=== PATIENT | female | born 1945 | race Caucasian/White ===

== ENCOUNTER 2017-11-03 15:28 | Emergency (ER) | payer MEDICARE, OTHER ==
[~2017-11-03 15:28] MED LIST: AMLO-96 PO; ASP325 PO; ATOR40TA24 PO; AZIT-18 PO; D ME PO; DEXL60CA6 PO; DIA5 PO; ESCI20TA38 PO; ESOM20CA31 PO; ESOM40CA42 PO; FES4PT PO; FLUR INH; FLUT16SP20 NS; HYDR1TAB PO; K-DUR; KET10 PO; LISI-346 PO; PER PO; PHEN-460 PO; PRED20TA6 PO; PROM-110 PO; SPIR25TA78 PO; TIZA4CAP3 PO; VALS1TAB61 PO; VALS320T12 PO
--- NOTE | 2017-11-03 15:31 | ER Report ---
History and Physical Time Seen By MD: 15:30 HPI/ROS This is a very pleasant 71-year-old female with a history of chronic back pain. She is visiting [place] from [place]. She is at her sister's house and states that yesterday she did not realize there was a step and when she stepped down a small step she jolted her back. She did not fall. However since the small jolt from her foot hitting the ground relatively hard and twisting somewhat, she has had an exacerbation of her chronic back pain. He describes the pain as lumbar. It is both midline as well as paraspinal. It does radiate down her right leg which she describes as similar to sciatica she has had previously. She has no neurologic changes and no changes in bowel or bladder. No fever chills, no recent her seizures on her back. No abdominal pain or urinary symptoms. Remainder of the 14 system rev: Yes Allergies: Coded Allergies: Sulfa (Sulfonamide Antibiotics) (Verified Allergy, Severe, HIVES, 11/03/17) Home Meds Active Scripts Promethazine Hcl (PROMETHAZINE HCL) 25 Mg Tablet, 25 MG PO Q8H Y for NAUSEA/ VOMITING, #12 TAB Prov:FORTINO VALDERRAMA [facility] 05/16/17 Ketorolac Tromethamine (KETOROLAC TROMETHAMINE) 10 Mg Tab, 10 MG PO Q6H, #20 TAB Prov:FORTINO VALDERRAMA [facility] 05/16/17 Prednisone (PREDNISONE) 20 Mg Tablet, 20 MG PO BID, #9 TAB Prov:FORTINO VALDERRAMA [facility] 05/16/17 Azithromycin 250 Mg Tab (AZITHROMYCIN 250 MG TAB) 250 Mg Tablet, 1 TAB PO QDAY, #4 TAB Prov:FORTINO VALDERRAMA [facility] 05/16/17 Reported Medications D-Methorphan Hb/Prometh Hcl (PROMETHAZINE-DM SYRUP) 118 Ml Syrup, 5 ML PO Q6H, ML 05/16/17 Valsartan (DIOVAN) 320 Mg Tablet, 320 MG PO QDAY 05/16/17 Dexlansoprazole (DEXILANT) 60 Mg Noel., 60 MG PO QDAY 05/16/17 Fesoterodine Fumarate (TOVIAZ) 4 Mg Tabsr, 4 MG PO DAILY 12/31/14 Fluticasone Propionate (Flonase) 16 Gm [place], 2 [place] NS DAILY, 0 Refills 03/27/09 Flunisolide (Aerobid Inhaler) 7 Gm Inh, 0 INH BID Y, 0 Refills 2 PUFFS 03/27/09 Atorvastatin Calcium (Lipitor) 40 Mg Tablet, 40 MG PO QHS, 0 Refills 03/27/09 Reviewed Nurses Notes: Yes Old Medical Records Reviewed: Yes Hx Smoking: No Smoking Status: Never Smoker Hx Substance Use Disorder: No Hx Alcohol Use: No Constitutional Vital Sign - Last 24 Hours 11/03/17 15:34 Temp 98.2 Pulse 102 Resp 20 B/P (MAP) 160/88 Pulse Ox 93 O2 Delivery Room Air Physical Exam General Appearance: The patient is alert, has no immediate need for airway protection and no current signs of toxicity. Eyes: PEERL Respiratory: Chest is non tender, lungs are clear to auscultation. Cardiac: regular rate and rhythm Gastrointestinal: Abdomen is soft and non tender, no masses, bowel sounds normal. Musculoskeletal: Very mild Tenderness to palpation of the mid L-spine. No step offs. Tenderness to palpation of the right paralumbar spinal region with tenderness to palpation of the right buttocks which reproduces pain is similar to sciatica Neck: Neck is supple and non tender. Extremities have full range of motion and are non tender. Skin: No rashes or lesions. [ ] DIFFERENTIAL DIAGNOSIS: After history and physical exam differential diagnosis was considered for back pain including but not limited to muscular pain, herniated disc, spine fracture, intra-abdominal causes and urinary tract infection. Medical Decision Making ED Course/Re-evaluation ED Course This is a very pleasant 71-year-old female who presents to the emergency department with acute on chronic back pain after missing a step yesterday and landing on her foot hard and twisting. She did not fall. She has no neurologic deficits weakness or paresthesias. She is no bowel or bladder changes. Her physical exam is not concerning for need for imaging. Her physical exam is more consistent with muscle strain and exacerbation of her chronic sciatica. She was given Decadron, Toradol and Valium which completely relieved her symptoms. She is able to ambulate without pain. I will give her a very short course of Valium for the next 2 days and encouraged her to take Tylenol and ibuprofen as well Decision to Disposition Date: Nov 03, 2017 Decision to Disposition Time: 18:01 Depart Departure Latest Vital Signs Vital Signs Date Time Temp Pulse Resp B/P (MAP) Pulse Ox O2 Delivery O2 Flow Rate FiO2 11/03/17 15:34 98.2 102 20 160/88 93 Room Air Impression: Primary Impression: Low back strain Condition: Improved Disposition: HOME OR SELF-CARE New Scripts Diazepam (VALIUM) 5 Mg Tablet 5 MG PO 2-3XD Y for PAIN, #10 TAB Prov: SALLY ESPOSITO MD 11/03/17 Patient Instructions: Low Back Strain (ED) Problem Qualifiers Primary Impression: Low back strain Encounter type: initial encounter Qualified Codes: S39.012A - Strain of muscle, fascia and tendon of lower back, initial encounter SALLY ESPOSITO MD Nov 03, 2017 15:31
[2017-11-03 15:34] VITALS: BP 160/88
[2017-11-03] MEDS ORDERED: DIAZEPAM 5 MG TAB PO ONE (16:35)
[2017-11-03] MEDS ORDERED: DEXAMETHASONE 4 MG TAB PO ONE (16:35)
[2017-11-03] MEDS ORDERED: KETOROLAC 60 MG/2 ML VIAL IM ONE (16:35)
[2017-11-03] MEDS ORDERED: DIA5 PO (18:04)
== END 2017-11-03 18:13 | disposition home or self-care (01) ==
LOC: ER 15:48
DX: S39.012A Strain of muscle, fascia and tendon of lower back, initial encounter (principal)
CPT/HCPCS: 96372; 99283; A9270; J1885; J8540

== ENCOUNTER 2017-12-08 19:54 | Emergency (ER) | payer MEDICARE, OTHER ==
[2017-12-08 19:57] VITALS: BP 174/99
[2017-12-08] MEDS ORDERED: BACITRACIN OINT 0.9 GM PKT TP ONE (20:10)
[2017-12-08] MEDS ORDERED: DIPHTH/TETANUS/ACEL. PERTUSSIS IM ONLY ONE (20:10)
[2017-12-08] MEDS ORDERED: AMOX-559 PO (20:21)
--- NOTE | 2017-12-08 20:22 | ER Report ---
History and Physical Time Seen By : 20:11 Hx. of Stated Complaint: PUPPY BITE TO LEFT ELBOW. CONCERENED ABOUT INFECTION HPI/ROS CHIEF COMPLAINT: Dog bite HISTORY OF PRESENT ILLNESS: Pt is a 72-year-old female who presents to ED with complaint of a dog bite to her left elbow area that occurred about an hour ago. She states that she was bitten by her nieces puppy to 3 months old. She is uncertain of the vaccination status of the dog but can find this out. 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 She is uncertain of her last tetanus vaccination. REVIEW OF SYSTEMS: Constitutional: No fever, no chills. Cardiovascular: No chest pain, no palpitations. Respiratory: No cough, no shortness of breath. Musculoskeletal: No back pain. Skin: See history of present illness. Neurological: No headache. Allergies: Coded Allergies: Sulfa (Sulfonamide Antibiotics) (Verified Allergy, Severe, HIVES, 12/08/17) Home Meds Active Scripts Diazepam (VALIUM) 5 Mg Tablet, 5 MG PO 2-3XD Y for PAIN, #10 TAB Prov:SALLY ESPOSITO MD 11/03/17 Promethazine Hcl (PROMETHAZINE HCL) 25 Mg Tablet, 25 MG PO Q8H Y for NAUSEA/ VOMITING, #12 TAB Prov:FORTINO VALDERRAMA [facility] 05/16/17 Ketorolac Tromethamine (KETOROLAC TROMETHAMINE) 10 Mg Tab, 10 MG PO Q6H, #20 TAB Prov:FORTINO VALDERRAMA [facility] 05/16/17 Prednisone (PREDNISONE) 20 Mg Tablet, 20 MG PO BID, #9 TAB Prov:FORTINO VALDERRAMA [employer] 05/16/17 Azithromycin 250 Mg Tab (AZITHROMYCIN 250 MG TAB) 250 Mg Tablet, 1 TAB PO QDAY, #4 TAB Prov:FORTINO VALDERRAMA [employer] 05/16/17 Reported Medications D-Methorphan Hb/Prometh Hcl (PROMETHAZINE-DM SYRUP) 118 Ml Syrup, 5 ML PO Q6H, ML 05/16/17 Valsartan (DIOVAN) 320 Mg Tablet, 320 MG PO QDAY 05/16/17 Dexlansoprazole (DEXILANT) 60 Mg , 60 MG PO QDAY 05/16/17 Fesoterodine Fumarate (TOVIAZ) 4 Mg Tabsr, 4 MG PO DAILY 12/31/14 Fluticasone Propionate (Flonase) 16 Gm [place], 2 [place] NS DAILY, 0 Refills 03/27/09 Flunisolide (Aerobid Inhaler) 7 Gm Inh, 0 INH BID Y, 0 Refills 2 PUFFS 03/27/09 Atorvastatin Calcium (Lipitor) 40 Mg Tablet, 40 MG PO QHS, 0 Refills 03/27/09 Reviewed Nurses Notes: Yes Old Medical Records Reviewed: Yes Hx Smoking: No Smoking Status: Never Smoker Hx Substance Use Disorder: No Hx Alcohol Use: No Constitutional Vital Sign - Last 24 Hours 12/08/17 19:57 Temp 98.3 Pulse 83 Resp 14 B/P (MAP) 174/99 Pulse Ox 92 O2 Delivery Room Air Physical Exam General Appearance: The patient is alert, has no immediate need for airway protection and no current signs of toxicity. Patient appears to be no acute distress. Eyes: Pupils equal and round no injection. Respiratory: Chest is non tender, lungs are clear to auscultation. Cardiac: regular rate and rhythm Musculoskeletal: Neck: Neck is supple and non tender. Extremities have full range of motion and are non tender. Skin: There are 3 small superficial 4 mm linear lacerations noted of the left elbow area. No surrounding erythema. No surrounding swelling. Medical Decision Making ED Course/Re-evaluation ED Course Discussed the patient and will prescribe prophylactic Augmentin. Patient will receive T dap and apply bacitracin to the wound. Decision to Disposition Date: December 08, 2017 Decision to Disposition Time: 20:17 Depart Departure Latest Vital Signs Vital Signs Date Time Temp Pulse Resp B/P (MAP) Pulse Ox O2 Delivery O2 Flow Rate FiO2 12/08/17 19:57 98.3 83 14 174/99 92 Room Air Impression: Primary Impression: Dog bite of left elbow Condition: Improved Disposition: HOME OR SELF-CARE New Scripts Amoxicillin/Pot Clav 875-125 Mg Tab (AUGMENTIN 875-125 TABLET) 1 Each Tablet 1 TAB PO Q12H, #20 TAB Prov: CARMITA SMITH PA-C 12/08/17 Patient Instructions: Animal Bite (ED) Additional Instructions: Monitor for signs and symptoms of infection including redness, swelling, discharge, fever. Follow-up with primary care provider in 2-3 days. If having worsening or concerning symptoms return to the emergency department. Problem Qualifiers Primary Impression: Dog bite of left elbow Encounter type: initial encounter Qualified Codes: S51.052A - Open bite, left elbow, initial encounter; W54.0XXA - Bitten by dog, initial encounter CARMITA SMITH PA-C December 08, 2017 20:22
== END 2017-12-08 20:45 | disposition home or self-care (01) ==
LOC: ER 20:31
DX: S51.052A Open bite, left elbow, initial encounter (principal); W54.0XXA Bitten by dog, initial encounter
CPT/HCPCS: 90471; 90715; 99282; A9270; C9399